=== PATIENT | female | born 1990 | race Caucasian/White ===

== ENCOUNTER 2019-05-17 07:55 | Emergency (ER) | payer SELFPAY ==
[~2019-05-17] VITALS: Ht 162.6 cm; Wt 68.0 kg
[2019-05-17] MEDS ORDERED: KETOROLAC 60MG/2ML VIAL IM STA (08:11)
[2019-05-17 08:20] VITALS: BP 148/85
[2019-05-17] MEDS ORDERED: ACETAMINOPHEN 325MG TABLET PO STA (09:07)
== END 2019-05-17 10:46 | disposition home or self-care (01) ==
LOC: ER 07:55
DX: S82.832A Other fracture of upper and lower end of left fibula, initial encounter for closed fracture (principal); W01.0XXA Fall on same level from slipping, tripping and stumbling without subsequent striking against object, initial encounter; Y93.89 Activity, other specified; Y92.521 Bus station as the place of occurrence of the external cause
CPT/HCPCS: 29515; 73610; 96372; 99283; J1885